=== PATIENT | male | born 1995 | race Caucasian/White ===

== ENCOUNTER 2019-09-24 07:34 | Emergency (ER) | payer OTHER ==
[~2019-09-24] VITALS: Ht 177.8 cm; Wt 72.7 kg
[2019-09-24 09:09] VITALS: BP 131/82
== END 2019-09-24 09:12 | disposition home or self-care (01) ==
LOC: M ED 07:34
DX: H65.92 Unspecified nonsuppurative otitis media, left ear (principal)